=== PATIENT | male | born 1960 | race Caucasian/White ===

== ENCOUNTER 2024-09-23 15:23 | Emergency (ER) | payer OTHER, SELFPAY ==
--- NOTE | ~2024-09-23 | XR_ITS ---
CLINICAL HISTORY: sob 1 view chest x-ray. Comparison: None Findings: No consolidation, pneumothorax, or pleural effusion identified. There is mild elevation of the left hemidiaphragm. Heart size normal. Impression: 1. Mild elevation of the left hemidiaphragm. Otherwise, no acute cardiopulmonary process. No focal pulmonary consolidation. This document has been electronically signed by: Cullen Mao MD on 09/23/2024 21:46:49
--- NOTE | 2024-09-23 15:25 | ECG_ITS ---
Test Reason : pain Blood Pressure : / mmHG Vent. Rate : 088 BPM Atrial Rate : 088 BPM P-R Int : 144 ms QRS Dur : 108 ms QT Int : 344 ms P-R-T Axes : 062 041 059 degrees QTc Int : 416 ms Normal sinus rhythm Minimal voltage criteria for LVH, may be normal variant ( Alan product ) Borderline ECG No previous ECGs available Referred By: Guillermo Mayer Electronically Signed By:ALINA BERMUDEZ MD
--- OUTSIDE RECORDS SUMMARY | 2024-09-23 15:26 | XMS_ITS | Continuity of Care Document ---
Author Organization [facility] ter Address [address] [place] [address]- Care Team Providers Care Telemarketing Sales Representative Name Role Phone Tripp Ramsey DO Primary Care Physician [phone] Encounter 09/08/24 - 09/09/[address] [address] Attending Physician: Not on Staff, Attending MD Referring Physician: Not on Staff, Referring MD Encounter Type: SMRI Allergies, Adverse Reactions, Alerts Substance Criticality Severity Reaction Reaction Severity Status penicillins Active Immunizations Given and Recorded Vaccine Date Status Refusal Reason influenza virus vaccine, inactivated 07/02/22 Elliott rded influenza virus vaccine, inactivated 06/04/20 Elliott rded influenza virus vaccine, inactivated 08/03/19 Elliott rded influenza virus vaccine, inactivated 1 08/13/18 Re corded influenza virus vaccine, inactivated 08/04/18 Elliott rded influenza virus vaccine, inactivated 10/02/16 Elliott rded SARS-CoV-2 (COVID-19) mRNA-1273 vaccine 04/04/22 R ecorded SARS-CoV-2 (COVID-19) mRNA-1273 vaccine 08/25/21 R ecorded SARS-CoV-2 (COVID-19) mRNA-1273 vaccine 01/14/21 R ecorded SARS-CoV-2 (COVID-19) mRNA-1273 vaccine 12/17/20 R ecorded zoster vaccine, inactivated 11/10/20 Recorded zoster vaccine, inactivated 06/04/20 Recorded tetanus/diphtheria/pertussis, acel(Tdap) 11/10/20 Recorded tetanus/diphtheria/pertussis, acel(Tdap) 08/03/16 Given Influenza Virus Vaccine (oldterm) 07/07/20 Recorde nick 1Result Comment: [10/08/2018] [facility] erythromycin 0.5% ophthalmic ointment 0.5 inches, Eye, Left, 4 times a day, # 4 Gm, 0 Refills, Maintenance, 03/29/21 2:50:00 PM EDT, Ophth Ointment, [id number], Partial fill upon patient request if the prescription is for a schedule II opioid drug., 0.5 inches Eye, Left 4 times a day, 185.42, cm, 03/29/21 14:26:00 EDT, Height, 102.5, kg, 09/25/19 7:09:00 EST, Dry Weight Start Date: 03/29/21 Status: Ordered Quantity: 4.0 Unit: g Repeat number: 1 Fish Oil By Mouth, 0 Refills, Maintenance, 12/06/20 9:28:00 AM EDT, Partial fill upon patient request if the prescription is for a schedule II opioid drug. Start Date: 12/06/20 Status: Ordered Repeat number: 1 Misc Rx Refills 0, Maintenance, 2 apple cider vinegar supplement, 02/03/24 3:33:00 PM EDT, Supply Start Date: 02/03/24 Status: Ordered Repeat number: 1 Multivitamin By Mouth, Daily, 0 Refills, Maintenance, 07/13/14 5:17:09 PM EDT Start Date: 07/13/14 Status: Ordered Repeat number: 1 Vitamin D3 1000 intl units oral tablet 1 tablet = 25 mcg, By Mouth, Daily, 0 Refills, Maintenance, 02/03/24 3:37:00 PM EDT, Partial fill upon patient request if the prescription is for a schedule II opioid drug. Start Date: 02/03/24 Status: Ordered Repeat number: 1 Problem List Condition Confirmation Course Effective Dates Status Health St atus Informant Actinic keratosis Confirmed Active Prediabetes Confirmed Active Psoriasis Confirmed Active Elevated PSA Confirmed Active Acne rosacea Confirmed Active Results Radiology Reports * Exam Date Time Procedure Performing Provider Status 12/17/24 4:48 PM MRI Pelvis W/O Contrast Auth (Verified) Notes: (MRI Pelvis W/O Contrast) Reason For Exam: Elevated PSA;Elevated PSA RESULT: MRI Pelvis W/O Contrast [facility] VISIT NUMBER :[id number] Patient Name: Gagan Alfaro Date of : 1960 Date of Exam: 09-08-2024 Referring Physician: Marcelina Paris [facility] [address] [place], [place] [address] Exam: MR Prostate (C-) CPT 54196 Room Description: [place] GE Pion 3T EXAMINATION NOT COMPLETED. After a few localizer sequences, the patient became claustrophobic and requested to in the exam. No additional images were obtained. The patient should follow up with the ordering provider to see if patient's discomfort can be managed to allow for reattempting the study. Electronically Signed By: Desmond Kaur MD Dictated By: Not on Staff , KELLY RAMOS Dictated Date/Time: 09/09/24 9:00 am Reviewed By: Not on Staff , KELLY RAMOS Signed By: Not on Staff , KELLY RAMOS Signed Date/Time: 09/09/24 9:00 am Transcribed By: DEDE Transcribed Date/Time: 09/09/24 9:00 am Social History Social History Type Response Smoking Status Never smoker entered on: 08/03/16 Sex Sex Representation Male (finding) Patient Care team information Care Team Personnel Name: Tripp Ramsey DO Position: S Physician - Primary Care Member Role: PCP Address: [address] [place] [address] Telecom: Care Team Related Persons Name: GOMEZ ALFARO Name: GALI ALFARO Insurance Providers Guarantor name: GAGAN ALFARO Health Plan Information #: 1 Payer: [facility] FF NON P HMO Member Number: NA Policy Number: NA Group Number: NA
[2024-09-23 15:38] VITALS: BP 194/88; PULSE 83; RESP 18; TEMP 36.4; O2SAT 99; BMI 26.3
--- NOTE | 2024-09-23 15:40 | ECG_ITS ---
Test Reason : CHEST PAIN Blood Pressure : / mmHG Vent. Rate : 075 BPM Atrial Rate : 075 BPM P-R Int : 148 ms QRS Dur : 112 ms QT Int : 374 ms P-R-T Axes : 016 039 058 degrees QTc Int : 417 ms Normal sinus rhythm Minimal voltage criteria for LVH, may be normal variant ( [place] product ) Borderline ECG When compared with ECG of 23-SEP-2024 15:28, No significant change was found Referred By: Guillermo Mayer Electronically Signed By:ALINA BERMUDEZ MD
--- NOTE | 2024-09-23 15:40 | ED.GENADULT ---
HPI - General Adult General Chief complaint: Chest Pain Stated complaint: Severe Chest Pain Time Seen by Provider: 09/23/24 19:28 Source: patient Mode of arrival: ambulatory Limitations: no limitations History of Present Illness ED Provider: HPI narrative: Patient no significant past medical history not taking any medication around 14:30 noticed mid chest tightness with shortness a breath says that he was unable to take a deep breath could not breathe also noticed that he is over reacting to small things lately patient is very active walks about 10,000 steps a day no chest pain during exertion no diaphoresis no left arm or jaw pain no significant family history Related Data Allergies Allergy/AdvReac Type Severity Reaction Status Date / Time Penicillins [PENICILLINS] Allergy Unknown RASH Verified 09/23/24 15:42 Review of Systems Review of Systems: Yes all other systems are reviewed and are negative [facility] Social History Social History Advance Directives: Yes Advance Directives Information Provided: No Advance Directives on File: No Do you have a plan to hurt others: No Plan Physical Exam ED Vital Signs: Vital Signs - 24 hr 09/23/24 15:38 09/23/24 19:28 09/23/24 20:45 Temperature 97.6 F 98.3 F 98.0 F Pulse Rate 83 63 64 Respiratory Rate 18 14 18 Blood Pressure 194/88 H 171/83 H 152/80 H Pulse Oximetry 99 98 98 Oxygen Delivery Method Room Air Room Air Room Air 09/23/24 20:50 Temperature 98.4 F Pulse Rate 60 Respiratory Rate 18 Blood Pressure 156/82 H Pulse Oximetry 98 Oxygen Delivery Method Room Air BMI result Body Mass Index 26.3 Appearance: Alert. Oriented X3. No acute distress. Eyes: PERRLA, No Nystagmus ENT: Pharynx normal. Oral Mucosa moist Neck: Normal inspection. Neck supple. CVS: Normal heart rate and rhythm. Pulses normal. Respiratory: No respiratory distress. Equal air entry bilateral, no wheezing/rales/rhonchi Abdomen: Soft and nontender. Bowel sounds are present, no mass palpable, no CVA tenderness Skin: Skin warm and dry. Normal skin color. Normal skin turgor. Extremities: No lower extremity edema. No calf tenderness Neuro: Oriented X 3. No motor deficit. No sensory deficit.No cerebellar signs , cranial nerves II-XII intact Course Course Course Narrative: RME, this is a rapid medical exam performed by Zach Mayer please refer to primary provider for complete H&P- 63-year-old male presents for evaluation of chest pain that started about 40 minutes ago while eating. He still has midsternal chest pain. The patient has no risk factors for coronary artery disease, no family history of coronary artery disease. Plan for labs, EKG Medical Decision Making Medical Decision Making [facility] Narrative: Patient with increased anxiety nonspecific symptoms feeling of shortness a breath with no objective findings D-dimer negative for blood clots 3 sets of troponin negative for significant delta change patient is asymptomatic during stay in the ER EKG without ischemic changes possible patient has had a panic/anxiety attack advised to follow with PCP for further management including stress and echo Differential Diagnosis Differential Diagnoses: The differential diagnosis associated with the presentation includes ACS/PE/anxiety/panic Lab Data [facility] Lab Attestation statement: I reviewed the patient's lab results. 09/23/24 15:50 09/23/24 15:50 Labs: Lab Results 09/23/24 09/23/24 09/23/24 Range/Units 15:50 17:53 20:48 WBC 5.6 (4.8-10.8) X10*3/uL RBC 4.58 L (4.60-5.80) X10*6/uL Hgb 14.6 (14.0-18.0) g/dl Hct 41.4 L (42.0-52.0) % MCV 90.4 (80.0-98.0) fL MCH 31.9 (27.0-33.0) pg MCHC 35.3 (31.0-36.0) g/dl RDW 12.6 (11.0-16.0) % Plt Count 275 (160-400) X10*3/uL MPV 8.5 L (9.4-12.4) fL Immature Gran % (Auto) 0.2 (0.0-0.4) % Neut % (Auto) 53.4 (45-73) % Lymph % (Auto) 33.3 (20-40) % [place] % (Auto) 11.2 H (2-11) % Eos % (Auto) 1.4 (0-4) % Baso % (Auto) 0.5 (0-2) % Lymph # (Auto) 1.9 (1.2-4.9) X10*3/uL [place] # (Auto) 0.6 (0.1-1.2) X10*3/uL Eos # (Auto) 0.1 (0.0-0.4) X10*3/uL Baso # (Auto) 0.0 (0.0-0.2) X10*3/uL Abs Immat Gran (auto) 0.01 (0.00-0.03) X10*3/uL Absolute Neuts (auto) 3.0 (2.0-8.3) x10*3/uL Absolute Nucleated RBC 0.000 (0.0-0.012) X10*3/uL Nucleated RBC % (auto) 0.0 (0.0-0.2) /100WBC PT 12.0 (10.9-12.4) SEC INR 1.0 (0.9-1.1) D-Dimer High Sensitivty < 150 NG/ML Sodium 140 (135-145) mmol/L Potassium 3.8 (3.3-5.1) mmol/L Chloride 105 (96-108) mmol/L Carbon Dioxide 25 (22-29) mmol/L Anion Gap 14 (12-20) BUN 13 (9-16) mg/dL Creatinine 0.78 (0.5-1.4) mg/dL Estim Creat Clear Calc 109.1 Estimated GFR > 60 Random Glucose 100 (60-115) mg/dL Calcium 9.1 (8.4-10.2) mg/dL Total Bilirubin 0.5 (0.0-1.0) mg/dL AST 45 H (5-37) U/L ALT 33 (0-40) U/L Alkaline Phosphatase 68 (39-117) U/L Troponin I High Sens < 2.7 4.7 D 14.6 D (<3.5-35.0) ng/L Total Protein 8.2 H (6.5-8.0) g/dL Albumin 4.7 (3.5-5.0) g/dL Lipase 27 (8-78) U/L Independent Interpretation I performed an independent interpretation of an: Plain X-Ray Discharge Plan Discharge Clinical Impression: Chest pain Patient Disposition: Home, Self-Care Instructions: Chest Pain (DC) Additional Instructions: Cause of your symptoms are not clear need further evaluation including stress test and echo Take 81mg aspirin daily Follow up with your PCP Print Language: Vietnamese
[2024-09-23 15:58] LABS: MANUAL DIFF FLAG NO
[2024-09-23 16:02] LABS: Basophils Percent Auto 0.5 % (0-2); Eosinophils Absolute Auto 0.1 X10*3/uL (0.0-0.4); Eosinophils Percent Auto 1.4 % (0-4); Hematocrit 41.4 % (42.0-52.0); Hemoglobin 14.6 g/dl (14.0-18.0); Imm Gran Abs Auto 0.01 X10*3/uL (0.00-0.03); Imm Gran Pct Auto 0.2 % (0.0-0.4); Lymphocytes Absolute Auto 1.9 X10*3/uL (1.2-4.9); Lymphocytes Percent Auto 33.3 % (20-40); Mean Corpuscular HGB Conc 35.3 g/dl (31.0-36.0); Mean Corpuscular Hemoglobin 31.9 pg (27.0-33.0); Mean Corpuscular Volume 90.4 fL (80.0-98.0); Mean Platelet Volume 8.5 fL (9.4-12.4); Monocytes Absolute Auto 0.6 X10*3/uL (0.1-1.2); Monocytes Percent Auto 11.2 % (2-11); Neutrophils Percent Auto 53.4 % (45-73); Platelet Count 275 X10*3/uL (160-400); Red Blood Count 4.58 X10*6/uL (4.60-5.80); Red Cell Distribution Width 12.6 % (11.0-16.0); White Blood Count 5.6 X10*3/uL (4.8-10.8)
[2024-09-23 16:24] LABS: Troponin-I High Sensitivity < 2.7 ng/L (<3.5-35.0)
[2024-09-23 16:51] LABS: Albumin Level 4.7 g/dL (3.5-5.0); Alkaline Phosphatase 68 U/L (39-117); Anion Gap 14 (12-20); Aspartate Amino Transferase 45 U/L (5-37); Bilirubin Total 0.5 mg/dL (0.0-1.0); Blood Urea Nitrogen 13 mg/dL (9-16); Calcium 9.1 mg/dL (8.4-10.2); Carbon Dioxide 25 mmol/L (22-29); Chloride 105 mmol/L (96-108); Creatinine Clr Calc Pharmacy 109.1; Estimated Glomerular Filt Rate > 60; Glucose Random 100 mg/dL (60-115); Lipase 27 U/L (8-78); Potassium 3.8 mmol/L (3.3-5.1); Sodium 140 mmol/L (135-145); Total Protein 8.2 g/dL (6.5-8.0)
[2024-09-23 17:02] LABS: Alanine Aminotransferase 33 U/L (0-40)
[2024-09-23 18:28] LABS: Troponin-I High Sensitivity 4.7 ng/L (<3.5-35.0)
[2024-09-23 19:28] VITALS: BP 171/83; PULSE 63; RESP 14; TEMP 36.8; O2SAT 98
[2024-09-23 20:45] VITALS: BP 152/80; PULSE 64; RESP 18; TEMP 36.7; O2SAT 98
[2024-09-23 20:50] VITALS: BP 156/82; PULSE 60; RESP 18; TEMP 36.9; O2SAT 98
--- NOTE | 2024-09-23 20:51 | MHC.EDTECH ---
Repeat trop obtained and sent to lab,vitals taken, at bedside call petersen in reach
[2024-09-23 20:56] LABS: D Dimer High Sensitivity < 150 NG/ML
[2024-09-23 21:15] LABS: Troponin-I High Sensitivity 14.6 ng/L (<3.5-35.0)
[2024-09-23] MEDS: Aspirin 81 MG TAB.CHEW 162 MG PO (21:34)
[2024-09-23 21:40] VITALS: BP 153/81; PULSE 56; RESP 12; TEMP 36.8; O2SAT 98
== END 2024-09-23 21:43 | disposition home or self-care (01) ==
PROVIDERS: Physician Assistant; Emergency Provider Internal Medicine; PCP Hospitalist
DX: R07.9 Chest pain, unspecified (principal); R06.02 Shortness of breath
CPT/HCPCS: 36415; 71045; 80053; 83690; 84484; 85025; 85379; 85610; 93005; 99283; 99284

== ENCOUNTER → 2024-09-23 15:25 | Outpatient (BNV) | payer OTHER, SELFPAY | PROVIDERS: Emergency Provider Internal Medicine; PCP Hospitalist; Visit Provider Internal Medicine Cardiovascular Disease | DX: R07.9 Chest pain, unspecified (principal); R94.31 Abnormal electrocardiogram [ECG] [EKG] | CPT/HCPCS: 93010 ==

== ENCOUNTER → 2024-09-23 21:22 | Outpatient (BNV) | payer OTHER, SELFPAY | PROVIDERS: Emergency Provider Internal Medicine; PCP Hospitalist; Visit Provider Radiology Diagnostic Radiology | DX: R07.9 Chest pain, unspecified (principal) | CPT/HCPCS: 71045 ==

== ENCOUNTER 2024-10-30 10:41 | Emergency (ER) | payer OTHER, SELFPAY ==
--- NOTE | ~2024-10-30 | XR_ITS ---
EXAMINATION: XR CHEST CLINICAL INFORMATION: cp COMPARISON: 09/23/2024. TECHNIQUE: 2 views of the chest were obtained. FINDINGS: The cardiac, hilar, and mediastinal contours are normal. The lungs are clear bilaterally. There is no pneumothorax or pleural effusion. There is no focal osseous or soft tissue abnormality. Mild spinal degenerative changes. XR/XR chest 2V IMPRESSION: Normal chest. Electronically signed by: Sami Dutton MD 10/30/2024 11:48 AM [facility]
--- NOTE | 2024-10-30 10:43 | ECG_ITS ---
Test Reason : chest paim Blood Pressure : */* mmHG Vent. Rate : 81 BPM Atrial Rate : 81 BPM P-R Int : 142 ms QRS Dur : 106 ms QT Int : 366 ms P-R-T Axes : 20 50 66 degrees QTcB Int : 425 ms Normal sinus rhythm Minimal voltage criteria for LVH, may be normal variant ( Alan product ) Borderline ECG When compared with ECG of 23-Sep-2024 15:52, No significant change was found Referred By: Generic ED Physician Electronically Signed By: Mamadou Laird
[2024-10-30 10:53] VITALS: BP 151/85; PULSE 80; RESP 19; TEMP 36.6; O2SAT 98; BMI 25.3
[2024-10-30 11:21] LABS: MANUAL DIFF FLAG NO
[2024-10-30 11:24] LABS: Basophils Percent Auto 0.5 % (0-2); Eosinophils Absolute Auto 0.1 X10*3/uL (0.0-0.4); Eosinophils Percent Auto 1.2 % (0-4); Hematocrit 40.6 % (42.0-52.0); Imm Gran Abs Auto 0.02 X10*3/uL (0.00-0.03); Imm Gran Pct Auto 0.3 % (0.0-0.4); Lymphocytes Absolute Auto 1.1 X10*3/uL (1.2-4.9); Mean Corpuscular HGB Conc 34.5 g/dl (31.0-36.0); Mean Corpuscular Hemoglobin 31.7 pg (27.0-33.0); Mean Corpuscular Volume 91.9 fL (80.0-98.0); Mean Platelet Volume 8.8 fL (9.4-12.4); Monocytes Absolute Auto 0.6 X10*3/uL (0.1-1.2); Monocytes Percent Auto 10.9 % (2-11); Neutrophils Percent Auto 68.1 % (45-73); Platelet Count 242 X10*3/uL (160-400); Red Blood Count 4.42 X10*6/uL (4.60-5.80); Red Cell Distribution Width 12.4 % (11.0-16.0); White Blood Count 5.9 X10*3/uL (4.8-10.8)
[2024-10-30 11:35] LABS: Anion Gap 16 (12-20); Blood Urea Nitrogen 9 mg/dL (9-16); Calcium 9.6 mg/dL (8.4-10.2); Carbon Dioxide 25 mmol/L (22-29); Chloride 104 mmol/L (96-108); Creatinine Clr Calc Pharmacy 112.4; Estimated Glomerular Filt Rate > 60; Glucose Random 101 mg/dL (60-115); Potassium 4.6 mmol/L (3.3-5.1); Sodium 140 mmol/L (135-145)
[2024-10-30 11:44] LABS: Troponin-I High Sensitivity < 2.7 ng/L (<3.5-35.0)
[2024-10-30 13:24] VITALS: BP 139/68; PULSE 65; RESP 18; O2SAT 99
--- NOTE | 2024-10-30 13:30 | ED.CHESTPAIN ---
HPI - Chest Pain General Chief Complaint: Chest Pain Stated Complaint: Chest Pain Time Seen by Provider: 10/30/24 13:16 Source: patient Mode of arrival: ambulatory Limitations: no limitations History of Present Illness ED Provider: Georgie Gifford NP HPI narrative: Patient is a 64-year-old male who presents emergency department for evaluation. He reports he was seen in the emergency department on 09/23/2024 with similar symptoms. Since that visit he has had ongoing intermittent episodic episodes of palpitations where he notices his heart rate to go as high as the 90s on his smart watch, associated chest pain shortness of breath. He reports that he had onset of this today, but by the time he arrived in the emergency department symptoms had resolved. He reports he is very active, walks approximately 10,000 steps daily, has not previously had any issues with pain in the chest during exertion or during exercise. Pain today was nonradiating, had no associated diaphoresis, nausea, vomiting. He has no reported past medical history he is otherwise healthy. He states that since his last visit he has not had follow up with any sales manager prearranged funerals. He did see his primary care doctor yesterday as he had a fall 5 days ago landing onto his right side and was having discomfort to the right lower lateral chest. States that outpatient x-rays were done and show no evidence of rib fracture. He reports that the pain has significantly improved since then. Related Data Allergies Allergy/AdvReac Type Severity Reaction Status Date / Time Penicillins [PENICILLINS] Allergy Unknown RASH Verified 10/30/24 10:54 Review of Systems Review of Systems: Yes all other systems are reviewed and are negative PMFSH Past Medical History Attestation statement: The following information was validated with the patient. Source: old records reviewed Social History Social History Advance Directives: No Advance Directives Information Provided: Yes Do you have a plan to hurt others: No Plan Physical Exam Vital Signs: Vital Signs: Last Vital Signs Temp 98 F 10/30/24 10:53 Pulse 65 10/30/24 13:24 Resp 18 10/30/24 13:24 BP 139/68 10/30/24 13:24 Pulse Ox 99 10/30/24 13:24 O2 Del Method Room Air 10/30/24 13:24 BMI result Body Mass Index 25.3 Appearance: Alert.?Oriented to person, place and time. No acute distress.?Normal affect. Eyes: Pupils equal, round and reactive to light.? ENT: Pharynx normal.?? Neck: Normal inspection.? Neck supple.??No JVD. CVS: Heart sounds normal. Normal heart rate and rhythm.? Pulses normal.?? Respiratory: No respiratory distress.? Lung sounds clear to auscultation bilaterally?? Abdomen: Soft and non-tender. Normoactive bowel sounds. No pulsatile mass.?? Skin: Skin warm and dry.? Normal skin color.? ?? Extremities: No lower extremity edema.? No calf ttp? Neuro: Moves all extremities spontaneously. Sensation intact bilaterally. CN II-XII intact. No focal neuro deficits. Ambulates with normal steady gait. Medical Decision Making Medical Decision Making MDM Narrative: Patient is a 64-year-old male with no reported past medical history who presents to the emergency department for evaluation with complaint of episodic palpitations chest tightness shortness of breath as per HPI. Overall he is well-appearing, nontoxic, afebrile, no apparent respiratory distress at this time. At the time my evaluation symptoms have resolved. No evidence of volume overload or shock on exam. EKG without signs of acute ischemia. EKG without evidence of STEMI. Low suspicion for acute PE (Wells low risk ), pneumothorax, thoracic aortic dissection, cardiac effusion / tamponade. No recent trauma or injury, no tracheal deviation, unlikely tension pneumothorax. No recent URI symptoms to suggest viral illness, pneumonia, costochondritis. No abdominal tenderness upon palpation, negative Guerrero sign, unlikely acute cholecystitis, choledocholithiasis, no fever or jaundice to suggest acute cholangitis, may possibly be biliary colic secondary to cholelithiasis. Denies associated acid reflux, no tenderness upon palpation over the epigastrium or left upper quadrant to suggest gastritis, no recent hematemesis history less likely to suggest PUD. Denies excessive alcohol consumption, history of diabetes, lower suspicion acute pancreatitis. He was seen in the emergency department 09/23/2024 with similar presentation had 3- troponins at that time, negative D-dimer, nonischemic EKG as well. Has been taking low-dose aspirin daily. Advised further outpatient follow-up with PCP and also given referral to Cardiology, he would likely benefit from further evaluation such as stress test, echocardiogram, Holter monitor. Discussed strict return precautions Differential Diagnosis Differential Diagnoses: The differential diagnosis associated with the presentation includes (See narrative above) Admission/Observation Consideration of admission/observation: Escalation of care including admission/observation considered (See narrative above and course narrative for further detail) Lab Data MDM Lab Attestation statement: I reviewed the patient's lab results. 10/30/24 11:07 10/30/24 11:07 Labs: Lab Results 10/30/24 Range/Units 11:07 WBC 5.9 (4.8-10.8) X10*3/uL RBC 4.42 L (4.60-5.80) X10*6/uL Hgb 14.0 (14.0-18.0) g/dl Hct 40.6 L (42.0-52.0) % MCV 91.9 (80.0-98.0) fL MCH 31.7 (27.0-33.0) pg MCHC 34.5 (31.0-36.0) g/dl RDW 12.4 (11.0-16.0) % Plt Count 242 (160-400) X10*3/uL MPV 8.8 L (9.4-12.4) fL Immature Gran % (Auto) 0.3 (0.0-0.4) % Neut % (Auto) 68.1 (45-73) % Lymph % (Auto) 19.0 L (20-40) % [place] % (Auto) 10.9 (2-11) % Eos % (Auto) 1.2 (0-4) % Baso % (Auto) 0.5 (0-2) % Lymph # (Auto) 1.1 L (1.2-4.9) X10*3/uL [place] # (Auto) 0.6 (0.1-1.2) X10*3/uL Eos # (Auto) 0.1 (0.0-0.4) X10*3/uL Baso # (Auto) 0.0 (0.0-0.2) X10*3/uL Abs Immat Gran (auto) 0.02 (0.00-0.03) X10*3/uL Absolute Neuts (auto) 4.0 (2.0-8.3) x10*3/uL Absolute Nucleated RBC 0.000 (0.0-0.012) X10*3/uL Nucleated RBC % (auto) 0.0 (0.0-0.2) /100WBC Sodium 140 (135-145) mmol/L Potassium 4.6 D (3.3-5.1) mmol/L Chloride 104 (96-108) mmol/L Carbon Dioxide 25 (22-29) mmol/L Anion Gap 16 (12-20) BUN 9 (9-16) mg/dL Creatinine 0.77 (0.5-1.4) mg/dL Estim Creat Clear Calc 112.4 Estimated GFR > 60 Random Glucose 101 (60-115) mg/dL Calcium 9.6 (8.4-10.2) mg/dL Total Bilirubin 0.8 (0.0-1.0) mg/dL Direct Bilirubin 0.3 (0.0-0.5) mg/dL AST 38 H (5-37) U/L ALT 22 (0-40) U/L Alkaline Phosphatase 65 (39-117) U/L Troponin I High Sens < 2.7 D (<3.5-35.0) ng/L Total Protein 8.5 H (6.5-8.0) g/dL Albumin 4.6 (3.5-5.0) g/dL Lipase 20 (8-78) U/L Independent Interpretation I performed an independent interpretation of an: EKG (EKG revealing normal sinus rhythm with ventricular rate of 81, QTC [address] elevation, no ST depression.) and Plain X-Ray (Consolidation or infiltrate) Radiology Impression Discussion of test interpretation with radiology: I have reviewed the radiologist's reading. Radiologist Impression: XR/XR chest 2V IMPRESSION: Normal chest. External Record Review External record reviewed: Outpatient record Prescription Management I considered prescription management with: Pain Medication Discharge Plan Discharge Clinical Impression: Chest pain, Palpitations Patient Disposition: Home, Self-Care Instructions: Heart Palpitations (ED), Chest Pain (ED) Additional Instructions: As discussed blood work today was very reassuring, EKG does not have any findings to suggest a heart attack. Given your recurrent episodes of palpitations, tightness in the chest, it is recommended that you follow-up outpatient with PCP/cardiology. I have provided contact information for the cardiology office associated with our hospital. It is unclear how long it should take read to be seen as a new patient. You may also speak with your primary care doctor if there is any delay in being seen, about potential outpatient testing such as stress test, echocardiogram, Holter monitor. You may return at any time with any new or worsening symptoms or concerns. Referrals: [facility] [Provider Group] Tripp Ramsey DO [Primary Care Provider] - Print Language: Tristanian
--- OUTSIDE RECORDS SUMMARY | 2024-10-30 13:39 | XMS_ITS | Continuity of Care Document ---
Author Organization [facility] Jacob Dominic lt Address [address] [place] [address]- Care Team Providers Care Radiotelegraph Operator Servicer Name Role Phone Tripp Ramsey DO Primary Care Physician [phone] Encounter [facility] NBR [id number] Date(s): 09/30/24 - 10/07/24 [facility] Ross Cardonaley Adult [address] [place] [address]- Encounter Diagnosis Chest pain(Discharge Diagnosis) - 09/29/24 Shortness of breath(Discharge Diagnosis) - 09/29/24 Elevated blood pressure reading(Discharge Diagnosis) - 09/30/24 Stress-related symptoms(Discharge Diagnosis) - 09/30/24 Attending Physician: Tripp Ramsey DO Encounter Type: Office Visit Allergies, Adverse Reactions, Alerts Substance Criticality Severity [...] Given Influenza Virus Vaccine (oldterm) 07/07/20 Recorde d 1Result Comment: [10/08/2018] [facility] eryth[facility] 0.5% ophthalmic ointment 0.5 inches, Eye, Left, 4 times a day, # 4 Gm, 0 Refills, Maintenance, 03/29/21 2:50:00 PM EDT, Ophth Ointment, [id number], Partial fill upon patient request if the [...] Date: 12/06/20 Status: Ordered Repeat number: 1 Flax Seed Oil 0 Refills, Maintenance, 09/30/24 8:35:00 AM EST, Partial fill upon patient request if the prescription is for a schedule II opioid drug. Start Date: 09/30/24 Status: Ordered Repeat number: 1 Misc Rx [...] St atus Informant Actinic keratosis Confirmed Active Chest pain Confirmed Active Shortness of breath Confirmed Active Elevated blood pressure reading Confirmed Active Prediabetes Confirmed Active Psoriasis Confirmed Active Elevated PSA Confirmed Active Acne rosacea Confirmed Active Stress-related symptoms Confirmed Active Diagnosis Diagnosis Type Effective Dates Health Status inical Service Informant Chest pain Discharge Diagnosis 09/29/24 Shortness of breath Discharge Diagnosis 09/29/24 Elevated blood pressure reading Discharge Diagnosis 09/30/24 Stress-related symptoms Discharge Diagnosis 09/30/24 Vital Signs Most recent to oldest [Reference Range]: 1 2 Height 185.42 cm (09/30/24 8:58 AM) 185.42 cm (09/30/24 8:35 AM) Weight 89.6 kg (09/30/24 8:35 AM) Oxygen Saturation [94-100 %] 99 % (09/30/24 8:35 AM) Pulse Rate [55-90 bpm] 65 bpm (09/30/24 8:35 AM) Body Mass Index [18.5-24.99 kg/m2] 26.06 kg/m2 *H* (09/30/24 8:35 AM) Blood Pressure [90-138/55-84 mm Hg] 144/ 70mm Hg *H* (09/30/24 8:58 AM) 160/77mm Hg *H* (09/30/24 8:35 AM) Temperature [96.8-100.4 DegF] 97.4 DegF (09/30/24 8:35 AM) Mode of Delivery (Oxygen) Room air (09/30/24 8:35 AM) Blood pressure sites Arm, right (09/30/24 8:58 AM) Arm, right (09/30/24 8:35 AM) Temperature Route Oral (09/30/24 8:35 AM) Weight Obtained Via Standing scale (09/30/24 8:35 AM) Social History Social History Type Response Smoking Status Never smoker entered on: 08/03/16 Sex Sex Representation Male (finding) History and physical note * Event Display: History and Physical Hospital Authored Date: Patient Care team information Care Team Personnel Name: Tripp Ramsey DO Position: [facility] Physician - Primary Care Member Role: PCP Address: [address] [place] [address] Telecom: Care Team Related Persons Name: GOMEZ ALFARO Name: GALI ALFARO Insurance Providers Guarantor name: ANGELY ALFARO Health Plan Information #: 1 Payer: [employer] Member Number: [id number] Policy Number: NA Group Number: NA Health Plan Information #: 2 Payer: [facility] FF NON BHP HMO Member Number: [id number] Policy Number: NA Group Number: NA
--- OUTSIDE RECORDS SUMMARY | 2024-10-30 13:39 | XMS_ITS | Continuity of Care Document ---
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 Name Role Phone Tripp Ramsey DO Primary Care Physician Encounter [facility] [place] Date(s): 09/24/24 - 10/24/24 [facility] Adult [address] [place] [address]- Encounter Type: Triage Allergies, Adverse Reactions, Alerts Substance Criticality Severity [...] Maintenance, 03/29/21 2:50:00 PM EDT, [id number] Partial fill upon patient request if the [...] rosacea Confirmed Active Stress-related symptoms Confirmed Active Social History Social History Type Response Smoking Status Never smoker entered on: 08/03/16 Sex Sex Representation Male (finding) Patient Care team information Care Team Personnel Name: Tripp Ramsey DO Position: [facility] Physician - Primary Care Member Role: PCP Address: [address] [place] [id number] Telecom: Care Team Related Persons Name: GOMEZ ALFARO Name: GALI ALFARO Insurance Providers Guarantor name: ANGELY ALFARO Health Plan Information #: 1 Payer: [employer] P[employer] Member Number: NA Policy Number: NA Group Number: NA
[2024-10-30 14:11] LABS: Alanine Aminotransferase 22 U/L (0-40); Albumin Level 4.6 g/dL (3.5-5.0); Alkaline Phosphatase 65 U/L (39-117); Aspartate Amino Transferase 38 U/L (5-37); Bilirubin Direct 0.3 mg/dL (0.0-0.5); Bilirubin Total 0.8 mg/dL (0.0-1.0); Lipase 20 U/L (8-78); Total Protein 8.5 g/dL (6.5-8.0)
[2024-10-30 14:39] VITALS: BP 139/68; PULSE 65; RESP 18; TEMP -17.7; TEMP 0; O2SAT 99
== END 2024-10-30 14:39 | disposition home or self-care (01) ==
PROVIDERS: Nurse Practitioner Family; Emergency Provider Emergency Medicine Emergency Medical Services; PCP Family Medicine
DX: R07.89 Other chest pain (principal); R06.02 Shortness of breath; R00.2 Palpitations; Z79.899 Other long term (current) drug therapy
CPT/HCPCS: 36415; 71046; 80048; 80076; 83690; 84484; 85025; 93005; 99283; 99284

== ENCOUNTER → 2024-10-30 10:43 | Outpatient (BNV) | payer OTHER, SELFPAY | PROVIDERS: Emergency Provider Emergency Medicine Emergency Medical Services; PCP Family Medicine; Visit Provider Internal Medicine Cardiovascular Disease | DX: R07.9 Chest pain, unspecified (principal); R94.31 Abnormal electrocardiogram [ECG] [EKG] | CPT/HCPCS: 93010 ==

== ENCOUNTER → 2024-10-30 10:55 | Outpatient (BNV) | payer OTHER, SELFPAY | PROVIDERS: PCP Family Medicine; Visit Provider Radiology Diagnostic Radiology | DX: R07.9 Chest pain, unspecified (principal) | CPT/HCPCS: 71046 ==

== ENCOUNTER → 2024-12-31 07:56 | Outpatient (REF) | payer OTHER, SELFPAY ==
--- NOTE | 2024-12-31 08:01 | CA_ITS ---
Transthoracic Echocardiogram Patient (Last, First, Middle): Gagan Blanton P Gender: Male Date of : 1960 Age: 64 Procedure Date: 12/31/2024 Procedure Type: Transthoracic Echocardiogram Location: OP Height: 182.88 cm Weight: 88. 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 Normal LV ejection fraction of 60 65% with grade 1 diastolic dysfunction 2. Cardiac valvular Dopplers within normal limits 3. Mildly dilated ascending aorta at 4.1 cm 4. Normal measured RV systolic pressure 5. No gross pericardial effusion Findings Left Ventricle Normal left ventricular size, thickness, and systolic function. The visually estimated ejection fraction is between 60-65%. Spectral Doppler is indicative of an impaired relaxation filling pattern. E/E prime ratio is <8, consistent with normal filling pressures. Evidence suggests grade I (mild) diastolic dysfunction. Right Ventricle Normal right ventricular cavity size and systolic function. Atria The left atrium is likely dilated. There is no evidence of interatrial shunt. The right atrium is normal in size. Aortic Valve Normal aortic valve structure and function. There is no aortic valve stenosis. There is no aortic valve regurgitation. Mitral Valve Normal mitral valve structure and function. There is trace mitral valve regurgitation. There is no mitral valve stenosis. Pulmonic Valve The pulmonic valve is likely normal. Tricuspid Valve Normal tricuspid valve structure. There is trace tricuspid valve regurgitation. The right ventricular systolic pressure is normal. The right ventricular systolic pressure is 15 mmHg. Normal right atrial pressure. There is no evidence of pulmonary hypertension. Great Vessels The pulmonary artery was not well visualized. There is mild dilatation of the ascending aorta measuring 4.10 cm. Venous The inferior vena cava is normal in size and collapses greater than 50% with inspiration. Pericardium/Pleural There is no evidence of pericardial effusion. Prior Study Comparison No prior study available for comparison. Measurements 2D Linear Measurements IVSd: 0.82 0.6-0.9/0.6-1.0 cm LVIDd: 5.68 3.9-5.3/4.2-5.9 cm LVIDd Index: 2.70 2.4-3.2/2.2-3.1 cm/m2 LVIDs: 3.25 2.0-3.6 cm LVPWd: 0.89 0.7-1.1 cm LA Diam: 3.90 2.7-3.8/3.0-4.0 cm LAIDs Index: 1.86 1.5-2.3 cm/m2 LV Mass: 228.98 67-162/88-224 g LV Mass Index: 109.04 43-95/49-115 g/m2 LVOT Diam: 2.30 3.0+(-)1.3 cm 2D Systolic Function EF 4C: 64.10 >55% EF 2C: 63.40 >55% EF BiP: 63.30 >55% Mitral Valve MV Pk E: 0.65 MV PK A: 0.84 MV Decel Time: 319.00 E/A: 0.80 E'Lateral: 11.30 E'Medial: 7.72 E/E' Med: 8.40 E/E' Lat: 5.70 PHT: 93.00 MVA PHT: 2.37 Decel [place]: 2.03 Aortic Valve AoV Pk Lul: 1.55 AoV Mn Lul: 1.01 AoV VTI: 0.38 AoV Pk Grad: 10.00 Aov Mn Grad: 5.00 CHIRAG Cont.VTI: 2.91 LVOT LVOT Pk Lul: 1.17 LVOT Mn Lul: 0.75 LVOT VTI: 0.27 LVOT Pk Grad: 5.00 LVOT Mn Grad: 3.00 LVOT Diam: 2.30 LVOT Area: 4.15 Diastolic Function MV Pk E: 0.65 MV Pk A: 0.84 E/A: 0.80 E'Medial: 7.72 E/E' Med: 8.40 E' Laterial: 11.30 E/E' Lat: 5.70 Right Ventricle TAPSE (mm): 30.40 TVS' Lul: 14.90 Tricuspid Valve TR Pk Lul: 1.72 TR Pk Grad: 12.00 RA Press: 3.00 RVSP: 15.00 Great Vessels Aorta Sinus of Valsalva: 3.73 2.0-3.[address] [place]: 3.38 1.7-3.4 cm Ao Asc: 4.10 2.1-3.4 cm Updated in Other Vendor System with Status of Final Pa Dobson MD electronically signed on 01/01/2025 9:46:18 AM with status of Final
--- NOTE | 2024-12-31 08:02 | CA_ITS ---
Acquisition Time: 2024-12-31 08:43:49 Total Exercise Time: 00:09:33 Test Indications: Dyspnea CP,Palpitations Medications: Protocol: YI Max HR: 141 BPM 89% of Pred: 158 BPM Max BP: 160/88 mmHG Max Work Load: 10.2 METS Exercise stress test with exercise 9 mins 33 secs of Yi Protocol, at Stage 4- left incline at 14% with speed upto 3.6mph, achieving 87% MPHR, with reports of mild SOB, no chest pain, with isolated PVCs, with normotensive response to exercise. Without EKG changes meeting criteria for ischemia. In recovery, breathing returned to baseline. Test reviewed with Dr. Laird. Referred By: Tripp Ramsey Electronically Signed By: Sherman Jamison
== END ==
LOC: HO.CARD 07:56
PROVIDERS: PCP Family Medicine; Visit Provider Family Medicine
DX: R07.89 Other chest pain (principal); R00.2 Palpitations
CPT/HCPCS: 93017; 93225; 93306

== ENCOUNTER → 2024-12-31 08:02 | Outpatient (BNV) | payer OTHER, SELFPAY | PROVIDERS: PCP Family Medicine | DX: I49.3 Ventricular premature depolarization (principal); R06.02 Shortness of breath | CPT/HCPCS: 93016; 93018; 93320; 93325; 93350 ==